=== PATIENT | male | born 1980 | race Caucasian/White ===

== ENCOUNTER 2018-12-28 01:26 | Emergency (ER) | payer OTHER ==
[~2018-12-28] VITALS: Ht 182.9 cm; Wt 80.0 kg
[2018-12-28 01:46] VITALS: BP 120/80
[2018-12-28] MEDS ORDERED: SERT25TA3 PO (01:47)
--- NOTE | 2018-12-28 01:48 | NUR ---
PT PRESENTED WITH C/O WORST MIGRAINE OF HIS LIFE. STARTED LAST NIGHT 2100. PT HAS NAUSEA AND PHOTOSENSITIVITY. MONITORS APPLIED, SIDERAILS UP X2, CALL LIGHT WITHIN REACH
[2018-12-28] MEDS ORDERED: DIPHENHYDRAMINE 50 MG/ML, 1ML ONE (01:56)
[2018-12-28] MEDS ORDERED: KETOROLAC 30 MG/1 ML ONE (01:57)
[2018-12-28] MEDS ORDERED: PROCHLORPERAZINE 5 MG/ML, 2ML ONE (01:57)
[2018-12-28] MEDS ORDERED: KETOROLAC 30 MG/1 ML IVPush ONE (02:00)
[2018-12-28] MEDS ORDERED: PROCHLORPERAZINE 5 MG/ML, 2ML IVPush ONE (02:00)
[2018-12-28] MEDS ORDERED: DIPHENHYDRAMINE 50 MG/ML, 1ML IVPush ONE (02:00)
--- NOTE | 2018-12-28 02:03 | NUR ---
IV SITE STARTED, PT MEDICATED PER MAR
--- NOTE | 2018-12-28 03:03 | NUR ---
PT RESTING WITH EYES CLOSED, NADN, FAMILY AT BEDSIDE, MONITORS IN PLACE, CALL LIGHT WITHIN REACH
== END 2018-12-28 03:49 | disposition home or self-care (01) ==
LOC: ED 03:06
DX: G43.009 Migraine without aura, not intractable, without status migrainosus (principal)
CPT/HCPCS: 70450; 96374; 96375; 99284; J0780; J1200; J1885